=== PATIENT | female | born 1990 | race Two or more races ===

== ENCOUNTER 2024-09-09 08:55 | Emergency (ER) | payer MEDICAID, SELFPAY ==
[2024-09-09 09:08] VITALS: BP 112/74; PULSE 71; RESP 17; TEMP 36.7; O2SAT 99; BMI 24.9
--- NOTE | 2024-09-09 09:37 | XR_ITS ---
Examination: Pelvic ultrasound, transabdominal, complete Technique: Transabdominal ultrasound of the pelvis performed using grayscale imaging Exam date and time: September 09, 2024 at 0220 hours Indications: Onset pelvic pain today FINDINGS: Uterus 9.2 x 4.0 x 5.5 cm Endometrial sign 0.6 cm No uterine mass or intrauterine gestation Right ovary 3.9 cm arterial flow 9 mm follicular cyst Left ovary 3.2 cm arterial flow 1.2 cm follicular cyst IMPRESSION: Negative examination
--- NOTE | 2024-09-09 09:37 | PD.EDRME ---
Rapid Medical Screening Exam RME Arrival date/time: 09/09/24 08:55 34-year-old female presents to the emergency department complains of right-sided pelvic pain Chief Complaint: Abdominal Pain Time Seen by Provider: 09/09/24 09:24 Vital signs: Vital Signs Temperature 98.1 F 09/09/24 09:08 Pulse Rate 71 09/09/24 09:08 Respiratory Rate 17 09/09/24 09:08 Blood Pressure 112/74 09/09/24 09:08 Pulse Oximetry (%) 99 09/09/24 09:08 Oxygen Delivery Method Room Air 09/09/24 09:08
[2024-09-09 10:05] LABS: Basophils # (Auto) 0.1 Thou/mm3 (0.0-0.2); Basophils % (Auto) 1 % (0-2.5); Eosinophils # (Auto) 0.1 Thou/mm3 (0.0-0.5); Eosinophils % (Auto) 1 % (0-10); Hematocrit 40.5 % (36.0-46.0); Hemoglobin 13.6 g/dL (12.0-16.0); Immature Granulocytes % (Auto) 0 % (0-0); Immature Granulocytes Auto 0.02 Thou/mm3 (0.00-0.00); Lymphocytes # (Auto) 3.2 Thou/mm3 (1.0-4.8); Lymphocytes % (Auto) 35 % (10-50); Mean Corpuscular HGB Conc 33.6 g/dl (31.0-37.0); Mean Corpuscular Hemoglobin 29.8 pg (25.0-35.0); Mean Corpuscular Volume 89 fL (80-100); Monocytes # (Auto) 0.6 Thou/mm3 (0.0-0.8); Monocytes % (Auto) 7 % (0-12); Neutrophils # (Auto) 5.2 Thou/mm3 (1.8-7.7); Neutrophils % (Auto) 56 % (37-80); Nucleated Red Blood Cell % 0 /100 WBC (0); Platelet Count 372 Thou/mm3 (140-440); RDW Standard Deviation 40.7 fL (36.4-46.3); Red Blood Count 4.56 Miln/mm3 (4.00-5.20); White Blood Count 9.1 Thou/mm3 (3.6-11.0)
[2024-09-09 10:28] LABS: Alanine Aminotransferase 13 U/L (10-49); Albumin, Serum 4.7 gm/dL (3.5-5.0); Albumin/Globulin Ratio 1.9 (1.2-2.2); Alkaline Phosphatase 56 U/L (46-116); Anion Gap 6 (7-16); Aspartate Amino Transferase 13 U/L (0-34); BUN/Creatinine Ratio 16 Ratio (12-20); Bilirubin,Total 0.5 mg/dL (0.3-1.2); Blood Urea Nitrogen 11 mg/dL (9-23); Calcium 9.4 mg/dL (8.3-10.6); Calcium (Corrected) 9.4 mg/dL (8.5-10.1); Carbon Dioxide 29.5 mMol/L (20.0-31.0); Chloride 104 mMol/L (98-107); Creatinine (Component) 0.7 mg/dL (0.6-1.3); Estimated Creatinine Clearance 92.3 mL/min (>60); Globulin 2.5 gm/dL (2.3-3.5); Glucose 73 mg/dL (74-106); Lipase 37 U/L (12-53); Osmolality,Calculated 275 (275-295); Potassium 3.8 mMol/L (3.4-5.1); Sodium 139 mMol/L (136-145); Total Protein 7.2 gm/dL (5.7-8.2); eGFR > 60 See Note
[2024-09-09 10:59] LABS: Collection Type, Urine Clean Catch; RBC,Urine 0 /hpf (0-3)
[2024-09-09 11:15] LABS: Bacteria,Urine Rare; Bilirubin,Urine Negative (Negative); Blood,Urine Negative (Negative); Clarity,Urine Clear (Clear/Hazy); Color,Urine Colorless (Lt Yel-Yel); Culture Indicated,Urine Not Indicated; Glucose, Urine Negative (Negative); Ketones,Urine Negative (Negative); Leukocyte Esterase,Urine Negative (Negative); Nitrite,Urine Negative (Negative); PH,Urine 6.5 (5.0-7.0); Protein,Urine Negative (Neg - Trace); Specific Gravity,Urine 1.004 (1.001-1.035); Squamous Epithelial Cell,Urine < 1 /hpf (0-5); Urobilinogen,Urine Negative mg/dL (0.0-1.0); WBC,Urine 1 /hpf (0-5)
[2024-09-09 11:16] LABS: HCG Qualitative,Urine Negative
[2024-09-09 12:41] VITALS: BP 118/79; PULSE 62; RESP 12; TEMP 36.6; O2SAT 99
--- NOTE | 2024-09-09 12:41 | EDNOTE_ITS ---
ED Abdominal Pain RME/HPI General Chief Complaint: Abdominal Pain Stated complaint: PELVIC PAIN Time seen by provider: 09/09/24 09:24 Arrival date/time: 09/09/24 08:55 34-year-old female with no known medical history presents to the emergency room with a chief complaint of right-sided pelvic 8 out of 10 pain x 2 days. Patient denies any dysuria or vaginal bleeding. Source: patient Mode of arrival: ambulatory Limitations: no limitations RME / HPI RME / HPI narrative: 09/09/24 08:55 34-year-old female presents to the emergency department complains of right-sided pelvic pain Review of Systems Review of Systems Systems Reviewed: All systems reviewed, normal except as documented Constitutional Constitutional: Reports system reviewed and no additional complaints, except as documented, Denies fatigue, Denies fever(s), Denies headache(s) and Denies weakness Eyes Eyes: Reports system reviewed and no additional complaints, except as documented, Denies blurry vision and Denies change in vision ENT Ears, Nose, Mouth, and Throat: Reports system reviewed and no additional complaints, except as documented, Denies otalgia, Denies headache(s), Denies nasal congestion, Denies throat swelling and Denies vertigo Cardiovascular Cardiovascular: Reports system reviewed and no additional complaints, except as documented, Denies chest pain, Denies dyspnea and Denies dyspnea on exertion Respiratory Respiratory: Reports system reviewed and no additional complaints, except as documented, Denies chest congestion, Denies cough, Denies dyspnea, Denies dyspnea on exertion and Denies wheezing Gastrointestinal Gastrointestinal: Reports system reviewed and no additional complaints, except as documented, Denies abdominal pain, Denies cramping, Denies nausea and Denies vomiting Genitourinary Genitourinary: Reports system reviewed and no additional complaints, except as documented, Denies dysmenorrhea, Denies dysuria, Denies menorrhagia and Reports pelvic pain Musculoskeletal Musculoskeletal: Reports system reviewed and no additional complaints, except as documented and Denies back pain Integumentary/Breasts Skin/Breast: Reports system reviewed and no additional complaints, except as documented and Denies wounds Neurologic Neurologic: Reports system reviewed and no additional complaints, except as documented, Denies confusion, Denies headache(s), Denies lack of coordination, Denies vertigo and Denies weakness Psychiatric Psychiatric: Reports system reviewed and no additional complaints, except as documented, Denies anxiety, Denies confusion, Denies depression, Denies paranoia, Denies suicidal ideation and Denies tactile hallucinations Endocrine Endocrine: Reports system reviewed and no additional complaints, except as documented and Denies fatigue Hematologic/Lymphatic Hematologic/Lymphatic: Reports system reviewed and no additional complaints, except as documented and Denies lymphadenopathy Allergic/Immunologic Allergic/Immunologic: Reports system reviewed and no additional complaints, except as documented, Denies throat swelling, Denies urticaria and Denies wheezing Past Medical History Social History SMOKING STATUS: Never smoker ED Exam General Limitations: Present no limitations General appearance: Present alert and in no apparent distress Head Head exam: Present atraumatic Eye Eye exam: Present normal appearance, PERRL and EOMI ENT ENT exam: Present normal exam, normal oropharynx and mucous membranes moist Neck Neck exam: Present normal inspection, full ROM and trachea midline Chest Chest inspection: Present normal inspection and symmetric chest wall rise Respiratory Respiratory exam: Present normal lung sounds bilaterally; Absent respiratory distress, wheezes, stridor, accessory muscle use or prolonged expiratory phase Cardiovascular Cardiovascular exam: Present regular rate, normal rhythm and normal heart sounds Abdominal Exam Abdominal exam: Present soft, tenderness and normal bowel sounds Abdominal tenderness: Present RLQ and mild Extremities Exam Extremities exam: Present normal inspection and full ROM Back Exam Back exam: Present normal inspection and full ROM Neurological Exam Neurological exam: Present alert, oriented X3 and CN II-XII intact Psychiatric Psychiatric exam: Present normal affect and normal mood Skin Skin exam: Present warm, dry, intact and normal color Course Quality Measures none Orders Category Date Time Status US pelvic complete Stat Exams 09/09/24 09:37 Completed CBC Stat Lab 09/09/24 09:56 Completed Comprehensive Metabolic Panel Stat Lab 09/09/24 09:56 Completed HCG Qualitative,Urine Stat Lab 09/09/24 10:48 Completed Lipase Stat Lab 09/09/24 09:56 Completed UA, C/S IF [Urinalysis, C/S if Indicated] Stat Lab 09/09/24 10:48 Completed Vital Signs Vital signs: Vital Signs Temperature 98.1 F 09/09/24 09:08 Pulse Rate 71 09/09/24 09:08 Respiratory Rate 17 09/09/24 09:08 Blood Pressure 112/74 09/09/24 09:08 Pulse Oximetry (%) 99 09/09/24 09:08 Oxygen Delivery Method Room Air 09/09/24 09:08 O2 saturation 99% within normal limits Abdominal Pain MDM MDM Narrative MDM Narrative:: 34-year-old female with no known medical history presents to the emergency room with a chief complaint of right-sided pelvic 8 out of 10 pain x 2 days. Patient denies any dysuria or vaginal bleeding. The patient is hemodynamically stable and in no apparent distress. The patient denies any vaginal bleeding or dysuria. Pelvic ultrasound was completed and there is a negative examination. There was a 9 mm follicular cyst. CBC CMP urinalysis were all within normal limits. Patient was educated to follow-up with her CONSULTING SERVICES MANAGER and return to the emergency room for any evidence of worsening signs or symptoms Patient data External records reviewed:: [facility] previous records Clinical information provided by:: patient Social determinants that could affect healthcare access:: none Patient has the following chronic illnesses:: No chronic illness How is presenting disease/condition affected by chronic disease/condition?: no chronic disease Evaluation data The following diagnostics were reviewed and interpreted by me:: lab results and radiology exam(s) Lab and/or radiology exams considered but not ordered:: Labs and radiology exams considered and ordered Interpretation Summary: N/A Medications / Prescriptions Medications or Prescriptions considered but not ordered:: Medication not given Medication administrations:: Medication not given Consultations Consultation(s) initiated? (list below): No Diagnosis Differential diagnosis abdominal pain: abdominal pain, acute appendicitis, constipation, gastroenteritis and other (Follicular cyst) Most likely diagnosis given after review of the tests above:: Follicular cyst Admission Indicated Admission indicated?: not indicated Admission Request Was there a request for admission?: No Disposition Plan Disposition Plan: Discharge Discharge Attestation Discharge Attestation: The patient and all family members were given an opportunity to ask questions and understood the discharge instructions. Discharge instructions specifically effects, indications for sooner follow up or return to the emergency department, and the expected course of current diagnosis. Patient condition: Stable Discharge Plan Plan Patient Disposition: HOME (Self Care) Disposition Comment: Stable Prescriptions/Referrals Referrals: No Primary/Family,Physician [Primary Care Provider] - In 1 week Problem List Clinical Impression: Follicular cyst of right ovary Patient/Caregiver Discharge Instructions Education Materials: ED Ovarian Cyst Additional Instructions: Please follow-up with your CONSULTING SERVICES MANAGER in the next 24 to 48 hours. Ultrasound of your pelvis was completed and was negative for any acute findings. There is a 9 mm ovarian cyst that could be the source of your pain. For any evidence of worsening signs or symptoms please return to the emergency room immediately Print Language: Macedonian Stand Alone Forms: Jeanine Award Info., Patient Portal Info Letter PA/[employer]PER[employer] Supervising Physician CLINT/COLLINS Supervising Physician: Dr Curry
== END 2024-09-09 12:41 | disposition home or self-care (01) ==
PROVIDERS: Nurse Practitioner Primary Care; Emergency Provider Emergency Medicine
DX: N83.01 Follicular cyst of right ovary (principal)
CPT/HCPCS: 36415; 76856; 80053; 81001; 81025; 83690; 85025; 99284

== ENCOUNTER 2025-04-11 19:01 | Emergency (ER) | payer MEDICAID, SELFPAY ==
[2025-04-11 19:02] VITALS: BMI 23.8
[2025-04-11 19:44] VITALS: BP 129/76; PULSE 67; RESP 18; TEMP 37.1; O2SAT 98
--- NOTE | 2025-04-11 20:02 | EKG_ITS ---
[facility] Test Date: 2025-04-11 Pat Name: MELISA SANTIAGO Department: Room: - Gender: Female Digital Content Producer: : [id number] Requested By: Roman Yang Order Number: [id number] Reading MD: Roman Yang Measurements Intervals [place] Rate: 62 P: 66 MS: 152 QRS: 47 QRSD: 74 T: 40 QT: 383 QTc: 391 Interpretive Statements SINUS RHYTHM No previous ECG available for comparison /store/S0/[id number].pdf
--- NOTE | 2025-04-11 20:02 | XR_ITS ---
Examination: PA chest single view Technique: Upright PA chest single view Date and time: April 11, 2025, 2019 hrs. Indications: Chest pain beginning 2 months ago. Findings: Normal heart size. Lungs are clear. The osseous structures are intact. Impression: No active disease.
--- NOTE | 2025-04-11 20:02 | XR_ITS ---
Examination: Abdomen sonogram, Limited Date and time of exam: April 11, 2025, 2034 hrs. Indications: Onset epigastric pain today Technique: Real-time cole scale transabdominal sonographic images of the upper abdomen obtained. Findings: Contracted gallbladder, no gallstones Common bile duct 0.3 cm Pancreatic head 3.6 cm Liver 12.5 cm Normal hepatopedal portal venous flow Patent IVC Impression: Prominent pancreatic head, clinical correlation advised.
[2025-04-11] MEDS: ONDANSETRON ODT 4 MG TABRAP PO (20:03)
[2025-04-11 20:10] LABS: Basophils # (Auto) 0.1 Thou/mm3 (0.0-0.2); Basophils % (Auto) 1 % (0-2.5); Eosinophils # (Auto) 0.1 Thou/mm3 (0.0-0.5); Eosinophils % (Auto) 1 % (0-10); Hematocrit 41.5 % (36.0-46.0); Hemoglobin 14.0 g/dL (12.0-16.0); Immature Granulocytes Auto 0.02 Thou/mm3 (0.00-0.00); Lymphocytes # (Auto) 3.6 Thou/mm3 (1.0-4.8); Lymphocytes % (Auto) 38 % (10-50); Mean Corpuscular HGB Conc 33.7 g/dl (31.0-37.0); Mean Corpuscular Hemoglobin 29.5 pg (25.0-35.0); Mean Corpuscular Volume 88 fL (80-100); Monocytes # (Auto) 0.7 Thou/mm3 (0.0-0.8); Monocytes % (Auto) 8 % (0-12); Neutrophils # (Auto) 5.0 Thou/mm3 (1.8-7.7); Neutrophils % (Auto) 53 % (37-80); Nucleated Red Blood Cell # 0.00 Thou/mm3 (0.00-0.00); Nucleated Red Blood Cell % 0 /100 WBC (0); Platelet Count 368 Thou/mm3 (140-440); RDW Standard Deviation 39.6 fL (36.4-46.3); Red Blood Count 4.74 Miln/mm3 (4.00-5.20); White Blood Count 9.5 Thou/mm3 (3.6-11.0)
[2025-04-11] MEDS: FAMOTIDINE 20 MG TABLET 40 MG PO (20:15)
[2025-04-11] MEDS: LIDOCAINE VISCOUS 2% 15 ML UDC PO (20:16)
[2025-04-11] MEDS: MG HYD/AL HYD/SIME (Maalox Reg) SUSP 30 ML UDC PO (20:16)
[2025-04-11] MEDS: HYDROcodone/APAP 5/325 TABLET 1 TAB PO (20:16)
[2025-04-11 20:42] LABS: Alanine Aminotransferase 8 U/L (10-49); Albumin, Serum 4.5 gm/dL (3.5-5.0); Albumin/Globulin Ratio 1.8 (1.2-2.2); Alkaline Phosphatase 62 U/L (46-116); Anion Gap 10 (7-16); Aspartate Amino Transferase 15 U/L (0-34); BUN/Creatinine Ratio 10 Ratio (12-20); Bilirubin,Total 0.4 mg/dL (0.3-1.2); Blood Urea Nitrogen 8 mg/dL (9-23); Calcium 9.9 mg/dL (8.3-10.6); Calcium (Corrected) 9.9 mg/dL (8.5-10.1); Carbon Dioxide 29.3 mMol/L (20.0-31.0); Chloride 103 mMol/L (98-107); Creatinine (Component) 0.8 mg/dL (0.6-1.3); Estimated Creatinine Clearance 72.7 mL/min (>60); Globulin 2.5 gm/dL (2.3-3.5); Glucose 93 mg/dL (74-106); Osmolality,Calculated 281 (275-295); Potassium 3.8 mMol/L (3.4-5.1); Sodium 142 mMol/L (136-145); Total Protein 7.0 gm/dL (5.7-8.2); Troponin I < 0.002 ng/mL (0.0-0.045); eGFR > 60 See Note
[2025-04-11 20:43] LABS: Collection Type, Urine Clean Catch
[2025-04-11 20:55] LABS: HCG Qualitative,Urine Negative
[2025-04-11 20:56] LABS: Bilirubin,Urine Negative (Negative); Blood,Urine 1+ (Negative); Clarity,Urine Clear (Clear/Hazy); Color,Urine Yellow (Lt Yel-Yel); Glucose, Urine Negative (Negative); Ketones,Urine Negative (Negative); Leukocyte Esterase,Urine Negative (Negative); Nitrite,Urine Negative (Negative); PH,Urine 6.5 (5.0-7.0); Protein,Urine Negative (Neg - Trace); RBC,Urine 1 /hpf (0-3); Specific Gravity,Urine 1.024 (1.001-1.035); Squamous Epithelial Cell,Urine 1 /hpf (0-5); Urobilinogen,Urine Negative mg/dL (0.0-1.0); WBC,Urine 1 /hpf (0-5)
--- NOTE | 2025-04-11 23:59 | XR_ITS ---
Examination: CT abdomen and pelvis without contrast. Coronal 3-D reconstructions. Sagittal 2-D reconstructions. Date and time of exam:April 12, 2025, 0021 hrs. Indications: Epigastric pain radiating to the back beginning today, clinical diagnosis pancreatitis CTDI: vol (mGy): 6.54 DLP: (mGycm): 322 Technique: Axial images of the abdomen have been obtained, 3 mm slice thickness Intravenous contrast material has not been administered. Low dose protocols were performed. One or more of the following dose reduction techniques were used; automated exposure control, adjustment of the mA and/or KV according to patient size, use of iterative reconstruction technique. Findings: No focal liver or splenic lesions Contracted gallbladder No pancreatic mass or peripancreatic edema. No renal or ureteral calculi, no hydronephrosis Aorta normal size. No bowel obstruction. No pericecal inflammatory change. No diverticulitis. Contracted urinary bladder. Anteverted uterus with no pelvic mass Mild disc narrowing posteriorly L5-S1 Impression: No acute process in the abdomen or pelvis.
--- NOTE | 2025-04-12 01:03 | PRELIM_ITS ---
CT scan of the abdomen and pelvis without intravenous contrast (axial sections with sagittal and coronal reformats) April 12, 2025 0012 hours Clinical History: pancreatitis Comparison: No prior study is available for comparison. Findings: The lung bases are clear. The liver, gallbladder, pancreas, spleen, kidneys and adrenals are unremarkable on this noncontrast study. No evidence of bowel obstruction. A moderate amount of fecal material is present in the colon. The stomach is distended with food residue. The appendix is not visualized. There are multiple subcentimeter mesenteric lymph nodes, The urinary bladder is unremarkable. There is no free fluid or free air. The osseous structures are unremarkable. Impression: No evidence of pancreatitis. Other findings as described above. Report Electronically Signed By: Heladio Knox 04/12/2025 1:03:17 AM [EST]
--- NOTE | 2025-04-12 01:35 | PD.EDABDPN ---
ED Abdominal Pain RME/HPI General Chief Complaint: Abdominal Pain Stated complaint: EPIGASTRIC PAIN RADIATING TO BACK TODAY Time seen by provider: 04/11/25 19:13 Arrival date/time: 04/11/25 19:01 This is a case of 35-year-old female with no medical history came in in the emergency room due to epigastric pain radiating to the back and chest for 1 day no shortness of breath no palpitation with nausea and vomiting but no diarrhea no constipation no blood in stool persistence of the symptoms this patient decided to start consult here in the emergency room Limitations: no limitations Related Data Home Medications ?Medication ?Instructions ?Recorded ?Confirmed Vitamin * 1 tab PO QDAY #0 tabs 01/28/15 Previous Rx's ?Medication ?Instructions ?Recorded Hydrocodone/Acetaminophen * (NORCO 1 tab PO Q6H PRN PAIN #14 tabs 05/10/17 5/325 *) ibuprofen 400 mg tablet 400 mg PO Q8H #30 tabs 06/28/20 ibuprofen 600 mg tablet 600 mg PO Q8H PRN fever or pain 02/08/24 #30 tabs cyclobenzaprine 10 mg tablet 10 mg PO HS #10 tabs 04/09/24 ibuprofen 800 mg tablet 800 mg PO Q6H PRN pain #14 tabs 04/09/24 famotidine 20 mg tablet 20 mg PO BID #60 tabs 04/12/25 omeprazole 20 mg capsule,delayed 20 mg PO QDAY #30 caps 04/12/25 release ondansetron 4 mg disintegrating 4 mg PO Q8H PRN nausea and 04/12/25 tablet vomiting #20 tabs Allergies Allergy/AdvReac Type Severity Reaction Status Date / Time No Known Allergies Allergy Verified 04/11/25 19:04 Review of Systems Review of Systems Systems Reviewed: All systems reviewed, normal except as documented Constitutional Constitutional: Reports system reviewed and no additional complaints, except as documented and Reports as per HPI Cardiovascular Cardiovascular: Reports system reviewed and no additional complaints, except as documented and Reports as per HPI Respiratory Respiratory: Reports system reviewed and no additional complaints, except as documented and Reports as per HPI Gastrointestinal Gastrointestinal: Reports system reviewed and no additional complaints, except as documented and Reports as per HPI Genitourinary Genitourinary: Reports system reviewed and no additional complaints, except as documented Neurologic Neurologic: Reports system reviewed and no additional complaints, except as documented and Reports as per HPI Past Medical History Past Medical History CARDIAC: Negative Congestive Heart Failure RESPIRATORY: Negative Chronic Obstructive Pulmonary Disease (COPD) GENITOURINARY: Negative Renal Disease ENDOCRINE: Negative Diabetes Mellitus Type 1 or Diabetes Mellitus Type 2 Social History SMOKING STATUS: Never smoker ED Exam General Limitations: Present no limitations General appearance: Present alert, in no apparent distress and other (Child is awake alert oriented not in distress nontoxic looking well-hydrated) Head Head exam: Present atraumatic, normocephalic and normal inspection Eye Eye exam: Present normal appearance, PERRL and EOMI ENT ENT exam: Present normal exam, normal oropharynx and mucous membranes moist Neck Neck exam: Present normal inspection, full ROM and trachea midline; Absent tenderness, meningismus or lymphadenopathy Chest Chest inspection: Present normal inspection and symmetric chest wall rise; Absent tenderness Respiratory Respiratory exam: Present normal lung sounds bilaterally; Absent respiratory distress, wheezes, stridor, accessory muscle use or prolonged expiratory phase Cardiovascular Cardiovascular exam: Present regular rate, normal rhythm and normal heart sounds; Absent bradycardia, tachycardia, irregular rhythm, systolic murmur or diastolic murmur Abdominal Exam Abdominal exam: Present soft and normal bowel sounds; Absent distention, tenderness, guarding, rebound, rigidity, diminished bowel sounds, hyperactive bowel sounds, hypoactive bowel sounds, organomegaly, psoas sign, obturator sign, Mae's sign, Rovsing's sign or tenderness at McBurney's Point Extremities Exam Extremities exam: Present normal inspection and full ROM Back Exam Back exam: Present normal inspection and full ROM Neurological Exam Neurological exam: Present alert, oriented X3, CN II-XII intact, normal gait and reflexes normal; Absent motor sensory deficit Psychiatric Psychiatric exam: Present normal affect and normal mood Skin Skin exam: Present warm, dry, intact and normal color Course Quality Measures none Orders Category Date Time Status EKG (ED ONLY) *Do not use* NOW Care 04/11/25 20:[address] abdomen pelvis wo con Stat Exams 04/11/25 23:59 Taken EKG (ED Only) Stat Exams 04/11/25 20:02 Draft US gall bladder Stat Exams 04/11/25 20:02 Completed XR chest 1V portable Stat Exams 04/11/25 20:02 Completed CBC Stat Lab 04/11/25 19:59 Completed Comprehensive Metabolic Panel Stat Lab 04/11/25 19:59 Results HCG Qualitative,Urine Stat Lab 04/11/25 20:27 Completed Lipase Stat Lab 04/11/25 19:59 Results Troponin I Stat Lab 04/11/25 19:59 Results Urinalysis Stat Lab 04/11/25 20:27 Completed Famotidine [Pepcid] Med 04/11/25 20:04 Discontinued 40 mg PO X1 ONE HYDROcodone*/APAP 5/325 [[place] 5/325] Med 04/11/25 20:04 Discontinued 1 tab PO X1 ONE Lidocaine 2% Viscous [Xylocaine 2% Viscous] Med 04/11/25 20:04 Discontinued 15 ml PO X1 ONE Ondansetron Odt [Zofran Odt] Med 04/11/25 19:50 Discontinued 4 mg PO X1 ONE Ondansetron Odt [Zofran Odt] Med 04/11/25 20:04 Discontinued 4 mg PO X1 ONE mg Hyd/Al Hyd/Pramod Susp [Maalox Susp] Med 04/11/25 20:04 Discontinued 30 ml PO X1 ONE Vital Signs Vital signs: Vital Signs Temperature 98.8 F 04/11/25 19:44 Pulse Rate 67 04/11/25 19:44 Respiratory Rate 18 04/11/25 19:44 Blood Pressure 129/76 04/11/25 19:44 Pulse Oximetry (%) 98 04/11/25 19:44 Oxygen Delivery Method Room Air 04/11/25 19:44 Oxygen saturation is 98% in room air Abdominal Pain MDM MDM Narrative MDM Narrative:: This is a case of 35-year-old female with no medical history came in in the emergency room due to epigastric pain radiating to the back and chest for 1 day no shortness of breath no palpitation with nausea and vomiting but no diarrhea no constipation no blood in stool persistence of the symptoms this patient decided to start consult here in the emergency room physical examination patient is awake alert oriented not in distress nontoxic looking well-hydrated well-nourished lungs sound is clear no crackles no rales no retraction no stridor heart normal rate regular rhythm no murmur abdominal exam is benign nonsurgical no guarding no rebound noted tenderness negative psoas negative straight or negative Rovsing's negative [place]'s negative Mae sign negative CVA tenderness blood test showed no leukocytosis no anemia kidney and liver function is normal no electrolyte imbalance urinalysis normal lipase is not available at the time of exam CT scan showed no pancreatitis ultrasound normal patient was given [place] Zofran and GI cocktail which patient condition markedly improved based on my physical examination and history patient symptoms suggestive of gastritis patient was advised to follow-up with PCP in 2 days for reevaluation and to be referred to glass sagger for further evaluation and treatment of chest pain patient troponin is negative patient EKG is normal sinus rhythm 62 patient needs to have echocardiogram stress test and Holter monitor patient need also to see a spinning frame changer for gastritis for EGD for any recurrence persistent worsening symptoms return precaution to the ER is advised Patient was discharged with comfortable condition walking with stable gait. Patient verbalized no further complains explained diagnosis and answered patient question. Patient is comfortable with the proposed management plan including the need to follow up with his/her primary care physician and any specialist if applicable Discussed patient for any urgent condition or worsening sx, He/She needed to go to emergency room immediately or call 911. Patient acknowledge the responsibility to follow up as instructed and to monitor her/his symptoms. For any persistence of the symptoms for more than 3-5 days return precaution advised. Discussed the result of the test and was given printed discharge instruction Patient data External records reviewed:: [facility] previous records Clinical information provided by:: patient Social determinants that could affect healthcare access:: none Patient has the following chronic illnesses:: None How is presenting disease/condition affected by chronic disease/condition?: no chronic disease Evaluation data The following diagnostics were reviewed and interpreted by me:: lab results and radiology exam(s) Lab and/or radiology exams considered but not ordered:: Reviewed Interpretation Summary: Reviewed Medications / Prescriptions Medications or Prescriptions considered but not ordered:: Given Medication administrations:: Medication Administration History Discontinued Medications Hydrocodone Bitart/Acetaminophen (Hydrocodone/Apap 5/325 Tablet) 1 tab PO X1 ONE Stop: 04/11/25 20:05 Last Admin: 04/11/25 20:16 Dose: 1 tab Documented By: Al Hydrox/Mg Hydrox/Simethicone (Mg Hyd/Al Hyd/Pramdo (Maalox Reg) Susp 30 Ml Udc) 30 ml PO X1 ONE Stop: 04/11/25 20:05 Last Admin: 04/11/25 20:16 Dose: 30 ml Documented By: Famotidine (Famotidine 20 Mg Tablet) 40 mg PO X1 ONE Stop: 04/11/25 20:05 Last Admin: 04/11/25 20:15 Dose: 40 mg Documented By: Lidocaine HCl (Lidocaine Viscous 2% 15 Ml Udc) 15 ml PO X1 ONE Stop: 04/11/25 20:05 Last Admin: 04/11/25 20:16 Dose: 15 ml Documented By: Ondansetron HCl (Ondansetron Odt 4 Mg Tabrap) 4 mg PO X1 ONE; Protocol Stop: 04/11/25 19:51 Last Admin: 04/11/25 20:03 Dose: 4 mg Documented By: Ondansetron HCl (Ondansetron Odt 4 Mg Tabrap) 4 mg PO X1 ONE; Protocol Stop: 04/11/25 20:05 Last Admin: 04/11/25 20:19 Dose: Not Given Documented By: Non-Admin Reason: Cancelled by Provider Given Consultations Consultation(s) initiated? (list below): No Diagnosis Differential diagnosis abdominal pain: abdominal pain, acute appendicitis, calculus of kidney, constipation, diverticulitis, gastroenteritis, pancreatitis and small bowel obstruction Most likely diagnosis given after review of the tests above:: Gastritis Admission Indicated Admission indicated?: not indicated Explain why admission is indicated or not indicated:: Not indicated Admission Request Was there a request for admission?: No Admission Attestation Admission request attestation: Not indicated Disposition Plan Disposition Plan: Discharge Discharge Attestation Discharge Attestation: The patient and all family members were given an opportunity to ask questions and understood the discharge instructions. Discharge instructions specifically effects, indications for sooner follow up or return to the emergency department, and the expected course of current diagnosis. Patient condition: Stable Discharge Plan Plan Patient Disposition: HOME (Self Care) Patient condition on transfer: Stable Prescriptions/Referrals Prescriptions/Med Rec: New famotidine 20 mg tablet 20 mg PO BID Qty: 60 0RF omeprazole 20 mg capsule,delayed release(DR/EC) 20 mg PO QDAY Qty: 30 0RF ondansetron 4 mg tablet,disintegrating 4 mg PO Q8H PRN (Reason: nausea and vomiting) Qty: 20 0RF No Action Vitamin * 1 EACH tablet 1 tab PO QDAY Qty: 0 Hydrocodone/Acetaminophen * (NORCO 5/325 *) 1 TAB tablet 1 tab PO Q6H PRN (Reason: PAIN) Qty: 14 0RF ibuprofen 400 mg tablet 400 mg PO Q8H Qty: 30 0RF ibuprofen 600 mg tablet 600 mg PO Q8H PRN (Reason: fever or pain) Qty: 30 0RF cyclobenzaprine 10 mg tablet 10 mg PO HS Qty: 10 0RF ibuprofen 800 mg tablet 800 mg PO Q6H PRN (Reason: pain) Qty: 14 0RF Referrals: Junior Weaver MD [Primary Care Provider, Family Practice] - In 1 week Problem List Clinical Impression: Abdominal pain, Chest pain of unknown etiology, Gastritis Patient/Caregiver Discharge Instructions Education Materials: Abdominal Pain, ED Chest Pain, Uncertain Cause, ED Gastritis (Adult) Additional Instructions: Follow-up with your primary care physician in 2 days for reevaluation and to be referred to glass sagger for further evaluation and treatment of chest pain for possible echocardiogram stress test and Holter monitor he also need to see a spinning frame changer for further evaluation and treatment of gastritis for possible EGD recurrence persistent worsening symptoms or any emergent concern call 911 or go to the nearest emergency room take your medication as directed spatulate Gatorade for every bouts of vomiting and for hydration avoid skipping of meals avoid fatty fried high cholesterol meals avoid spicy food avoid alcohol soda coffee keep hydrated Print Language: Ukrainian Stand Alone Forms: Jeanine Award Info., Patient Portal Info Letter PA/BIOLOGICAL SCIENCES PROFESSOR Supervising Physician PA/BIOLOGICAL SCIENCES PROFESSOR Supervising Physician: Dr. Mchugh
[2025-04-12 22:04] LABS: Lipase 39 U/L (12-53)
== END 2025-04-12 02:20 | disposition home or self-care (01) ==
PROVIDERS: Nurse Practitioner Family; Emergency Provider Emergency Medicine; PCP Family Medicine
DX: R10.9 Unspecified abdominal pain (principal); R07.9 Chest pain, unspecified; K29.70 Gastritis, unspecified, without bleeding
CPT/HCPCS: 36415; 71045; 74176; 76705; 80053; 81001; 81025; 83690; 84484; 85025; 93005; 99284; J3490; Q0162; A9270

== ENCOUNTER 2025-06-18 19:41 | Emergency (ER) | payer MEDICAID, SELFPAY ==
[2025-06-18 19:41] VITALS: BMI 23.6
[2025-06-18 19:53] VITALS: BP 107/70; PULSE 79; RESP 16; TEMP 36.8; O2SAT 98
--- NOTE | 2025-06-18 20:01 | PD.EDEYE ---
ED Eye Problem RME/HPI General Chief complaint: Eye Problems Stated complaint: POSS FOREIGN BODY R EYE Time Seen by Provider: 06/18/25 19:57 Arrival date/time: 06/18/25 19:41 35F with no significant PMH presents to ED with R eye irritation after patient may have gotten something in her eye, though patient denies initial injury felt. Patient denies vision changes. Patient does not wear contacts. Limitations: no limitations Related Data Home Medications ?Medication ?Instructions ?Recorded ?Confirmed Vitamin * 1 tab PO QDAY #0 tabs 01/28/15 Previous Rx's ?Medication ?Instructions ?Recorded Hydrocodone/Acetaminophen * (NORCO 1 tab PO Q6H PRN PAIN #14 tabs 05/10/17 5/325 *) ibuprofen 400 mg tablet 400 mg PO Q8H #30 tabs 06/28/20 ibuprofen 600 mg tablet 600 mg PO Q8H PRN fever or pain 02/08/24 #30 tabs cyclobenzaprine 10 mg tablet 10 mg PO HS #10 tabs 04/09/24 ibuprofen 800 mg tablet 800 mg PO Q6H PRN pain #14 tabs 04/09/24 famotidine 20 mg tablet 20 mg PO BID #60 tabs 04/12/25 omeprazole 20 mg capsule,delayed 20 mg PO QDAY #30 caps 04/12/25 release ondansetron 4 mg disintegrating 4 mg PO Q8H PRN nausea and 04/12/25 tablet vomiting #20 tabs erythromycin 5 mg/gram (0.5 %) eye 1 applic ophthalmic (eye) BID 1 06/18/25 ointment week #3.5 grams Allergies Allergy/AdvReac Type Severity Reaction Status Date / Time No Known Allergies Allergy Verified 06/18/25 19:43 Review of Systems Review of Systems Systems Reviewed: All systems reviewed, normal except as documented Eyes Eyes: Reports as per HPI and Reports irritation Past Medical History Past Medical History CARDIAC: Negative Congestive Heart Failure RESPIRATORY: Negative Chronic Obstructive Pulmonary Disease (COPD) GENITOURINARY: Negative Renal Disease ENDOCRINE: Negative Diabetes Mellitus Type 1 or Diabetes Mellitus Type 2 Social History SMOKING STATUS: Never smoker ED Exam General Limitations: Present no limitations General appearance: Present alert and in no apparent distress Head Head exam: Present atraumatic ENT ENT exam: Present normal exam, normal oropharynx and mucous membranes moist Neck Neck exam: Present normal inspection, full ROM and trachea midline Chest Chest inspection: Present normal inspection and symmetric chest wall rise Neurological Exam Neurological exam: Present alert and oriented X3 Psychiatric Psychiatric exam: Present normal affect and normal mood Skin Skin exam: Present warm, dry, intact and normal color Course Quality Measures none Orders Category Date Time Status ED Eye Irrigation ONCE Care 06/18/25 19:59 Active Abreu Lamp to Bedside X1 Care 06/18/25 19:59 Active Erythromycin Op Oint 0.5% Med 06/18/25 19:59 Discontinued 1 gm RIGHT EYE X1 ONE Fluorescein Sodium [Bio-Rosalie] Med 06/18/25 19:59 Discontinued 1 mg RIGHT EYE X1 ONE Vital Signs Vital signs: Vital Signs Temperature 98.3 F 06/18/25 19:53 Pulse Rate 79 06/18/25 19:53 Respiratory Rate 16 06/18/25 19:53 Blood Pressure 107/70 06/18/25 19:53 Pulse Oximetry (%) 98 06/18/25 19:53 Oxygen Delivery Method Room Air 06/18/25 19:53 O2 at 98% on RA and WNLs Eye MDM Narrative MDM Narrative:: 35F with no significant PMH presents to ED with R eye irritation after patient may have gotten something in her eye, though patient denies initial injury felt. Patient denies vision changes. Patient does not wear contacts. Physical exam reveals normal pupil response and EOM. No obvious FB or conjunctivitis. Patient is afebrile, calm, and alert. Wood's lamp exam unremarkable. Meds and certified addiction counselor given. Patient data External records reviewed:: [facility] previous records Clinical information provided by:: patient Social determinants that could affect healthcare access:: none Patient has the following chronic illnesses:: none How is presenting disease/condition affected by chronic disease/condition?: no chronic disease Evaluation data The following diagnostics were reviewed and interpreted by me:: other (specify) (none) Lab and/or radiology exams considered but not ordered:: not ordered Interpretation Summary: n/a Medications / Prescriptions Medications or Prescriptions considered but not ordered:: ordered Medication administrations:: Medication Administration History Discontinued Medications Erythromycin (Erythromycin Op Oint 0.5% 1 Gm Packet) 1 gm RIGHT EYE X1 ONE Stop: 06/18/25 20:00 Fluorescein Sodium (Fluorescein Sod 1 Mg Strp) 1 mg RIGHT EYE X1 ONE Stop: 06/18/25 20:00 above Consultations Consultation(s) initiated? (list below): No Diagnosis Eye Problem Differential Diagnosis: corneal abrasion (irritation), conjunctivitis, acute iritis, hyphema, periorbital cellulitis, subconjunctival hemorrhage, glaucoma, corneal ulcer and ruptured globe Most likely diagnosis given after review of the tests above:: corneal irritation Admission Indicated Admission indicated?: not indicated Admission Request Was there a request for admission?: No Disposition Plan Disposition Plan: Discharge Discharge Attestation Discharge Attestation: The patient and all family members were given an opportunity to ask questions and understood the discharge instructions. Discharge instructions specifically effects, indications for sooner follow up or return to the emergency department, and the expected course of current diagnosis. Patient condition: Stable Discharge Plan Plan Patient Disposition: HOME (Self Care) Discharge Disposition comment: Stable Prescriptions/Referrals Prescriptions/Med Rec: New erythromycin 5 mg/gram (0.5 %) ointment 1 applic ophthalmic (eye) BID 7 Days Qty: 3.5 0RF No Action Vitamin * 1 EACH tablet 1 tab PO QDAY Qty: 0 Hydrocodone/Acetaminophen * (NORCO 5/325 *) 1 TAB tablet 1 tab PO Q6H PRN (Reason: PAIN) Qty: 14 0RF ibuprofen 400 mg tablet 400 mg PO Q8H Qty: 30 0RF ibuprofen 600 mg tablet 600 mg PO Q8H PRN (Reason: fever or pain) Qty: 30 0RF famotidine 20 mg tablet 20 mg PO BID Qty: 60 0RF omeprazole 20 mg capsule,delayed release(DR/EC) 20 mg PO QDAY Qty: 30 0RF ondansetron 4 mg tablet,disintegrating 4 mg PO Q8H PRN (Reason: nausea and vomiting) Qty: 20 0RF cyclobenzaprine 10 mg tablet 10 mg PO HS Qty: 10 0RF ibuprofen 800 mg tablet 800 mg PO Q6H PRN (Reason: pain) Qty: 14 0RF Referrals: No Primary/Family,Physician [Referring Provider] - In 1 week Problem List Clinical Impression: Corneal irritation Patient/Caregiver Discharge Instructions Education Materials: Corneal Injury Additional Instructions: Please follow-up with PCP within 24-48 hours and return immediately if symptoms worsen. See eye doctor in the next few days. Print Language: Yakut Stand Alone Forms: Patient Portal Info Letter PA/SPRAY II PAINTER Supervising Physician CLINT/COLLINS Supervising Physician: Dr. Carter
[2025-06-18] MEDS: FLUORESCEIN SOD 1 MG STRP RIGHT EYE (21:01)
[2025-06-18] MEDS: Erythromycin Op Oint 0.5% 1 GM PACKET RIGHT EYE (21:01)
== END 2025-06-18 21:23 | disposition home or self-care (01) ==
PROVIDERS: Emergency Provider Emergency Medicine; PCP Family Medicine
DX: H57.89 Other specified disorders of eye and adnexa (principal)
CPT/HCPCS: 99281; A9270